=== PATIENT | female | born 1940 | race Caucasian/White ===

== ENCOUNTER 2016-03-20 04:24 | Observation (INO) | payer MEDICARE, BC ==
[2016-03-20] VITALS (12 sets, daily range): BP systolic 95–139; BP diastolic 47–87; PULSE 58–75; TEMP 97.8–98.2
[~2016-03-20] VITALS: Ht 157.5 cm; Wt 66.8 kg
[~2016-03-20 04:24] MED LIST: ASPIR-LOW81 MG PO; CENTRUM SILVER1 TA1 PO; CRESTOR PO; Nasocort NS; TRIAMTERENE AND1 TA1 PO
[2016-03-20 05:06] LABS: BASO % 0.6 % (0.0-2.0); EOS # 0.1 (0.0-0.7); EOS % 1.8 % (0-4.0); GRAN # 3.4 (1.4-6.5); GRAN % 50.7 % (42.2-75.2); HEMATOCRIT 39.7 % (37.0-47.0); HEMOGLOBIN 13.8 g/dl (12.5-16.0); LYMPH # 2.7 (1.2-3.4); LYMPH % 40.3 % (20.0-51.0); MEAN CELL VOLUME 87 fl (80.0-100.0); MEAN CORPUSCULAR HEMOGLOBIN 30 pg (27.0-31.0); MEAN CORPUSCULAR HGB CONC 35 g/dl (33.0-37.0); MEAN PLATELET VOLUME 9.4 fl (7.4-10.4); MONO # 0.4 (0.1-0.6); MONO % 6.5 % (1.7-9.3); PLATELET COUNT 243 K/mm3 (130-400); RED BLOOD COUNT 4.55 M/mm3 (4.10-5.30); REDCELL DISTRIBUTION WIDTH-CV 12.7 % (11.5-14.5); WHITE BLOOD COUNT 6.7 K/mm3 (4.8-10.8)
[2016-03-20 05:23] LABS: ADJUSTED CALCIUM 9.9 mg/dL (8.4-10.2); ALBUMIN 4.3 gm/dL (3.5-5.0); BILIRUBIN,TOTAL 0.8 mg/dL (0.0-1.0); CALCIUM 10.1 mg/dL (8.4-10.2); CREATININE, serum 0.79 mg/dL (0.52-1.25); POTASSIUM 3.3 mmol/L (3.4-5.0); TOTAL PROTEIN 7.5 gm/dL (6.4-8.2)
[2016-03-20] MEDS ORDERED: FLONASEALLERGY NS (06:42)
[2016-03-20] MEDS ORDERED: NATURAL POTASS595 MG PO (06:43)
[2016-03-20] MEDS ORDERED: ALEVE 220MG220 MG PO (06:44)
[2016-03-20] MEDS ORDERED: ASPI325T6 PO (06:45)
[2016-03-20] MEDS ORDERED: CRESTOR5 MG PO (06:45)
[2016-03-20] MEDS ORDERED: DYRENIUM 50MG C50 MG PO (06:46)
[2016-03-20] MEDS ORDERED: NORCO 325 MG-51 TAB PO (07:05)
[2016-03-20] MEDS ORDERED: FLOMAX 0.40.4 MG/CAP PO (07:05)
[2016-03-20] MEDS ORDERED: ZOFRAN ODT4 MG PO (07:05)
[2016-03-20 07:19] LABS: PH 8 (5-8); SQUAMOUS EPITHELIAL None Seen /hpf; URINE APPEARANCE Clear; URINE BACTERIA None Seen /hpf; URINE BILIRUBIN Negative (NEGATIVE); URINE BLOOD Negative (NEGATIVE); URINE COLOR Straw; URINE GLUCOSE Negative (NEGATIVE); URINE KETONE Negative (NEGATIVE); URINE UROBILINOGEN Negative (NEGATIVE); URINE WBC 0-2 /hpf
[2016-03-21] VITALS (13 sets, daily range): BP systolic 97–128; BP diastolic 48–79; PULSE 55–77; TEMP 97.2–98.6
[2016-03-21] MEDS ORDERED: DYAZIDE 25 MG-31 CAP PO (13:50)
[2016-03-21] MEDS ORDERED: CIPRO 500MG TA500 MG PO (15:43)
== END 2016-03-21 17:27 | disposition home or self-care (01) ==
LOC: COL.ER 04:24 → SURG 09:18
PROVIDERS: Emergency Medicine
DX: N20.1 Calculus of ureter (principal)
CPT/HCPCS: C1769; G0378; J0690; J1100; J1170; J1885; J2270; J2405; J2704; J3010; J7030; J7120

== ENCOUNTER → 2016-07-31 | Outpatient (CLI) | payer MEDICARE, BC ==
[~2016-07-31] MED LIST changes: +ALEVE 220MG220 MG PO; +ASPI325T6 PO; +CIPRO 500MG TA500 MG PO; +CRESTOR5 MG PO; +DYAZIDE 25 MG-31 CAP PO; +DYRENIUM 50MG C50 MG PO; +FLOMAX 0.40.4 MG/CAP PO; +FLONASEALLERGY NS; +NATURAL POTASS595 MG PO; +NORCO 325 MG-51 TAB PO; +ZOFRAN ODT4 MG PO
== END ==
LOC: MC.RAD 14:00
DX: Z12.31 Encounter for screening mammogram for malignant neoplasm of breast (principal)

== ENCOUNTER → 2017-08-28 | Outpatient (CLI) | payer MEDICARE, BC | LOC: MC.RAD 09:40 | DX: Z12.31 Encounter for screening mammogram for malignant neoplasm of breast (principal) ==

== ENCOUNTER → 2018-08-31 | Outpatient (CLI) | payer MEDICARE, BC | LOC: MC.RAD 10:23 | DX: Z12.31 Encounter for screening mammogram for malignant neoplasm of breast (principal) ==

== ENCOUNTER → 2019-09-16 | Outpatient (CLI) | payer MEDICARE, BC | LOC: MC.RAD 09-03 14:00 | DX: Z12.31 Encounter for screening mammogram for malignant neoplasm of breast (principal) ==

== ENCOUNTER → 2020-04-11 | Outpatient (CLI) | payer MEDICARE, BC | LOC: COL.RAD 10:25 | DX: N20.0 Calculus of kidney (principal); Z90.710 Acquired absence of both cervix and uterus | CPT/HCPCS: Q9967 ==

== ENCOUNTER → 2020-09-18 | Outpatient (CLI) | payer MEDICARE, BC | LOC: MC.RAD 11:07 | DX: Z12.31 Encounter for screening mammogram for malignant neoplasm of breast (principal) ==